=== PATIENT | male | born 1945 | race American Indian/Alaskan Native ===

== ENCOUNTER 2024-09-16 10:25 | Emergency (ER) | payer MEDICARE, MEDICAID, SELFPAY ==
[2024-09-16 11:23] VITALS: BP 167/71; PULSE 55; RESP 18; TEMP 36.4; O2SAT 95; BMI 18.5
--- NOTE | 2024-09-16 11:38 | EDNOTE_ITS ---
<Statement entered by Katie Angulo MD - 09/16/24 17:34> As co-signing physician, I was present and available for consult prn. I concur with the plan and care as documented by the midlevel provider. ED Wound/Laceration-RME/HPI General Chief Complaint: Wound/Laceration Stated Complaint: FINGER LAC Time Seen by Provider: 09/16/24 11:29 Arrival date/time: 09/16/24 10:25 RME / HPI RME / HPI narrative: 78-year-old male patient came in for evaluation regarding laceration to right pinky finger lateral aspect, patient was using a knife accidentally cut himself sustaining 1 cm nongaping laceration, right pinky finger severity mild. No active bleeding noted, patient is able to bend and extend the finger without any limitation. Tetanus vaccination is up-to-date. Last year Related Data Previous Rx's ?Medication ?Instructions ?Recorded naproxen 500 mg tablet 500 mg PO Q12H #20 tabs 12/06 Allergies Allergy/AdvReac Type Severity Reaction Status Date / Time No Known Allergies Allergy Verified 12/24/17 06:05 Review of Systems Review of Systems Narrative Review of Systems: Review of system reviewed and within normal limits except mentioned in HPI ED Exam Narrative Physical exam: VITAL SIGNS: Reviewed. GENERAL APPEARANCE: Alert and interactive, follows commands, no acute distress, HEAD AND FACE: Non-traumatic. ENT: PERRL, pink conjunctivitis, eyelid no trauma, Mucous membrane moist. NECK: Supple, nontender, no nuchal rigidity. CHEST: No tenderness, no crepitus, no paradoxical movement, no retractions. LUNGS: Clear, well ventilated, symmetric, no rales, no wheezing, no ronchi, no stridor, good breath sounds bilaterally. HEART: Regular rate, regular rhythm, no murmur, no gallops. ABDOMEN: Soft, positive bowel sounds, nondistended, no guarding, nontender, no rebound, no masses, RECTAL: Deferred. GENITAL: Deferred. NEUROLOGICAL: Gross motor function intact sensory function intact, Appropriate for age. MUSCULOSKELETAL: low back nontender, full range of motion. EXTREMITIES:+1 centimeter nongaping laceration, right pinky finger, full range of motion. SKIN: Color pink, dry, no rash, no lacerations, no abrasions, no contusions. LYMPHATICS: Deferred. Course Quality Measures none Orders Category Date Time Status Ibuprofen Tab [Motrin Tab] Med 09/16/24 11:38 Once 800 mg PO X1 ONE Vital Signs Vital signs: Vital Signs Temperature 97.6 F 09/16/24 11:23 Pulse Rate 55 L 09/16/24 11:23 Respiratory Rate 18 09/16/24 11:23 Blood Pressure 167/71 H 09/16/24 11:23 Pulse Oximetry (%) 95 09/16/24 11:23 Oxygen Delivery Method Room Air 09/16/24 11:23 Wound / Laceration MDM Narrative MDM Narrative:: 78-year-old male patient came in for evaluation regarding laceration to right pinky finger lateral aspect, patient was using a knife accidentally cut himself sustaining 1 cm nongaping laceration, right pinky finger severity mild. No active bleeding noted, patient is able to bend and extend the finger without any limitation. Tetanus vaccination is up-to-date. Last year Wound cleansed with NS, sterile strip applied, sterile dressing applied primary suture is noted at this time. Imaging is not needed also Patient appears nontoxic and hemodynamically stable. Patient discharged home and instructed to follow-up with primary care provider in 24 to 48 hours. Instructed to return to the emergency department immediately if worsening of s ymptoms Patient data External records reviewed:: None Clinical information provided by:: patient Social determinants that could affect healthcare access:: none Patient has the following chronic illnesses:: None How is presenting disease/condition affected by chronic disease/condition?: no chronic disease Evaluation data The following diagnostics were reviewed and interpreted by me:: other (specify) (None) Lab and/or radiology exams considered but not ordered:: None Interpretation Summary: None Medications / Prescriptions Medications or Prescriptions considered but not ordered:: None Medication administrations:: None Consultations Consultation(s) initiated? (list below): No Diagnosis Wound Differential Diagnosis: laceration, abrasion and avulsion of skin Most likely diagnosis given after review of the tests above:: Finger laceration Admission Indicated Admission indicated?: not indicated Admission Request Was there a request for admission?: No Disposition Plan Disposition Plan: Discharge Discharge Attestation Discharge Attestation: The patient was given an opportunity to ask questions and understood the discharge instructions. Discharge instructions specifically effects, i ndications for sooner follow up or return to the emergency department, and the expected course of current diagnosis. Patient condition: Stable Discharge Plan Plan Patient Disposition: HOME (Self Care) Disposition Comment: Stable Prescriptions/Referrals Prescriptions/Med Rec: No Action naproxen 500 mg tablet 500 mg PO Q12H Qty: 20 0RF Rx Instructions: administer with food or milk Problem List Clinical Impression: Finger laceration Patient/Caregiver Discharge Instructions Discharge Activity: activity as tolerated Education Materials: ED Laceration Small or ... Additional Instructions: Thank you for the opportunity for serving you today. You are stable for discharged . You are advised to: Follow-up with your PCP in 1 to 2 days Return to ED for worsening of symptoms Increase oral fluids Do not remove the Steri-Strips for the next 5 days Do not get your laceration wet for the next 5 days Print Language: Scottish Stand Alone Forms: [employer]he[employer] Award Info., Patient Portal Info Letter PA/HOME IMPROVEMENT CONTRACTOR Supervising Physician RONEL/HOME IMPROVEMENT CONTRACTOR Supervising Physician: MD Dion
[2024-09-16] MEDS: IBUPROFEN TAB 400 MG TABLET 800 MG PO (12:11)
== END 2024-09-16 12:31 | disposition home or self-care (01) ==
LOC: SERX 12:28
PROVIDERS: Emergency Provider Emergency Medicine; PCP Family Medicine
DX: S61.216A Laceration without foreign body of right little finger without damage to nail, initial encounter (principal); W26.0XXA Contact with knife, initial encounter
CPT/HCPCS: 99282; A9270

== ENCOUNTER 2025-05-16 15:04 | Emergency (ER) | payer MEDICARE, MEDICAID, SELFPAY ==
[2025-05-16 15:46] VITALS: BP 172/82; PULSE 70; RESP 19; TEMP 37.1; O2SAT 95; BMI 18.3
--- NOTE | 2025-05-16 17:03 | PD.EDWOUND ---
ED Wound/Laceration-RME/HPI General Chief Complaint: Wound/Laceration Stated Complaint: LAC TO L HAND Time Seen by Provider: 05/16/25 16:00 Arrival date/time: 05/16/25 15:04 79-year-old male presents to the emergency department today send he accidentally cut his hand today on a piece of metal Limitations: no limitations Related Data Previous Rx's ?Medication ?Instructions ?Recorded naproxen 500 mg tablet 500 mg PO Q12H #20 tabs 12/24/17 Allergies Allergy/AdvReac Type Severity Reaction Status Date / Time No Known Allergies Allergy Verified 12/24/17 06:05 Review of Systems Review of Systems Systems Reviewed: All systems reviewed, normal except as documented Constitutional Constitutional: Reports system reviewed and no additional complaints, except as documented, Denies fever(s) and Denies headache(s) Eyes Eyes: Reports system reviewed and no additional complaints, except as documented and Denies blurry vision ENT Ears, Nose, Mouth, and Throat: Reports system reviewed and no additional complaints, except as documented, Denies headache(s), Denies nasal congestion and Denies nasal discharge Cardiovascular Cardiovascular: Reports system reviewed and no additional complaints, except as documented, Denies chest pain and Denies dyspnea Respiratory Respiratory: Reports system reviewed and no additional complaints, except as documented, Denies chest congestion, Denies cough and Denies dyspnea Gastrointestinal Gastrointestinal: Reports system reviewed and no additional complaints, except as documented and Denies abdominal pain Integumentary/Breasts Skin/Breast: Reports system reviewed and no additional complaints, except as documented, Denies rash and Reports wounds Neurologic Neurologic: Reports system reviewed and no additional complaints, except as documented, Reports as per HPI and Denies headache(s) Past Medical History Past Medical History CARDIAC: Negative Congestive Heart Failure RESPIRATORY: Negative Chronic Obstructive Pulmonary Disease (COPD) GENITOURINARY: Negative Renal Disease ENDOCRINE: Negative Diabetes Mellitus Type 1 or Diabetes Mellitus Type 2 Social History SMOKING STATUS: Never smoker ED Exam General Limitations: Present no limitations General appearance: Present alert and in no apparent distress Head Head exam: Present atraumatic Eye Eye exam: Present normal appearance, PERRL and EOMI ENT ENT exam: Present normal exam, normal oropharynx and mucous membranes moist Neck Neck exam: Present normal inspection, full ROM and trachea midline Chest Chest inspection: Present normal inspection and symmetric chest wall rise Respiratory Respiratory exam: Present normal lung sounds bilaterally Cardiovascular Cardiovascular exam: Present regular rate, normal rhythm and normal heart sounds Abdominal Exam Abdominal exam: Present soft and normal bowel sounds Extremities Exam Extremities exam: Present full ROM, tenderness and normal capillary refill; Absent joint swelling Back Exam Back exam: Present normal inspection and full ROM Neurological Exam Neurological exam: Present alert, oriented X3 and CN II-XII intact Psychiatric Psychiatric exam: Present normal affect and normal mood Skin Skin exam: Present warm, dry, intact and normal color Course Quality Measures none Orders Category Date Time Status Set Up Suture Tray STAT Care 05/16/25 16:03 Active Wound Care NOW Care 05/16/25 16:03 Active Lidocaine 1% Vial 20 ml [Xylocaine 1% 20 ML] Med 05/16/25 16:03 Discontinued 20 ml INFL X1 ONE TET,DIP/PERT AC (Adult)-Tdap [Boostrix Adult (Tdap) Med 05/16/25 16:03 Discontinued Vacc] 0.5 ml IMI .ONCE ONE Vital Signs Vital signs: Vital Signs Temperature 98.8 F 05/16/25 15:46 Pulse Rate 70 05/16/25 15:46 Respiratory Rate 19 05/16/25 15:46 Blood Pressure 172/82 H 05/16/25 15:46 Pulse Oximetry (%) 95 05/16/25 15:46 Oxygen Delivery Method Room Air 05/16/25 15:46 O2 saturation 95% room air within normal limits PROCEDURES: Laceration Laceration 1: Site: hand Side (If applicable): left Size (cm): 4 Description: linear Depth: simple, single layer Local Anesthetic: lidocaine 1% Amount of anesthesia used (mL): 5 Pre-repair: wound explored and irrigated extensively Skin layer closed with: other (Prolene) Suture size (cm): 4-0 Number of sutures: 5 Technique: simple, interrupted Wound / Laceration MDM Narrative MDM Narrative:: 79-year-old male presents to the emergency department today send he accidentally cut his hand today on a piece of metal On exam patient well-appearing does not appear ill or toxic no distress Wound irrigated copiously laceration repaired total of 5 sutures by my colleague No evidence of tendon or ligament injury Patient instructed if sutures removed in 10 days Patient discharged home in no distress to follow-up with primary care doctor in the next 24 to 48 hours and for any worsening symptoms to return to the ER immediately Patient data External records reviewed:: [facility] previous records Clinical information provided by:: patient Social determinants that could affect healthcare access:: none Patient has the following chronic illnesses:: See history How is presenting disease/condition affected by chronic disease/condition?: uneffected by Evaluation data The following diagnostics were reviewed and interpreted by me:: other (specify) (N/A) Lab and/or radiology exams considered but not ordered:: Considered not ordered Interpretation Summary: N/A Medications / Prescriptions Medications or Prescriptions considered but not ordered:: Given Medication administrations:: Medication Administration History Discontinued Medications Diphtheria/Tetanus/Acell Pertussis (Diphth,Pertuss(Acell),Tet Vac 0.5 Ml Syr- Adult) 0.5 ml IMi .ONCE ONE Stop: 05/16/25 16:04 Lidocaine HCl (Lidocaine Hcl 1% 20 Ml Vial) 20 ml INFL X1 ONE Stop: 05/16/25 16:04 Given Consultations Consultation(s) initiated? (list below): No Diagnosis Wound Differential Diagnosis: laceration, abscess, abrasion and avulsion of skin Most likely diagnosis given after review of the tests above:: Laceration Admission Indicated Admission indicated?: not indicated Admission Request Was there a request for admission?: No Disposition Plan Disposition Plan: Discharge Discharge Attestation Discharge Attestation: The patient and all family members were given an opportunity to ask questions and understood the discharge instructions. Discharge instructions specifically effects, indications for sooner follow up or return to the emergency department, and the expected course of current diagnosis. Patient condition: Stable Discharge Plan Plan Patient Disposition: HOME (Self Care) Discharge Disposition comment: Stable Prescriptions/Referrals Prescriptions/Med Rec: No Action naproxen 500 mg tablet 500 mg PO Q12H Qty: 20 0RF Rx Instructions: administer with food or milk Problem List Clinical Impression: Laceration of hand, left Patient/Caregiver Discharge Instructions Education Materials: ED Laceration Hand with ... Additional Instructions: Please follow up with your primary care doctor in the next 24-48hrs for any worsening symptoms return here immediately Please have sutures removed in 10 days Print Language: Amharic Stand Alone Forms: [employer]he[employer] Award Info., Patient Portal Info Letter Vaccines Vaccines Given During Stay: TDaP PA/LOANS OFFICER Supervising Physician PA/LOANS OFFICER Supervising Physician: Dr. Girard
[2025-05-16] MEDS: LIDOCAINE HCL 1% 20 ML VIAL INFL (17:10)
== END 2025-05-16 18:19 | disposition home or self-care (01) ==
PROVIDERS: Emergency Provider Emergency Medicine
DX: S61.412A Laceration without foreign body of left hand, initial encounter (principal); W26.9XXA Contact with unspecified sharp object(s), initial encounter
CPT/HCPCS: 12001; 99281; J3490

== ENCOUNTER 2025-05-23 14:38 | Emergency (ER) | payer MEDICARE, MEDICAID, SELFPAY ==
[2025-05-23 14:44] VITALS: BP 154/68; PULSE 70; RESP 20; TEMP 36.7; O2SAT 96
--- NOTE | 2025-05-23 15:20 | EDNOTE_ITS ---
<Statement entered by Katie Angulo MD - 06/02/25 06:29> As co-signing physician, I was present and available for consult prn. I concur with the plan and care as documented by the midlevel provider. Upper Extremity Injury RME/HPI General Chief Complaint: Hand/Wrist Problems Stated Complaint: REMOVAL OF STITCHES L) HAND Time Seen by Provider: 05/23/25 14:56 Arrival date/time: 05/23/25 14:38 79-year-old male with laceration to the left palm reports for suture removal. Patient states he has been keeping the area clean and dry he denies numbness tingling pain discharge redness swelling fever or chills. Limitations: no limitations Related Data Previous Rx's ?Medication ?Instructions ?Recorded naproxen 500 mg tablet 500 mg PO Q12H #20 tabs 12/06 Allergies Allergy/AdvReac Type Severity Reaction Status Date / Time No Known Allergies Allergy Verified 05/23/25 14:40 Review of Systems Constitutional Constitutional: Denies chills and Denies fever(s) Musculoskeletal Musculoskeletal: Denies arthralgias, Denies joint swelling, Denies numbness and Denies tingling Integumentary/Breasts Skin/Breast: Denies unusual bruising and Reports wounds Neurologic Neurologic: Denies numbness and Denies tingling ED Exam General Limitations: Present no limitations General appearance: Present alert and in no apparent distress Extremities Exam Extremities exam: Present other (Left hand thenar eminence for intact sutures well-approximated edges no evidence of infection all digits full range of motion cap refill less than 2 seconds remainder of hand unremarkable) Neurological Exam Neurological exam: Present alert, oriented X3 and CN II-XII intact Psychiatric Psychiatric exam: Present normal affect and normal mood Skin Skin exam: Present warm, dry, intact and normal color Course Course Course Narrative: 79-year-old male with displaced left palm hand reports for suture removal. Assessment of sutures they need to remain for more days patient is advised to return in 3 days to have sutures removed Quality Measures none Orders Category Date Time Status Wound Care NOW Care 05/23/25 15:20 Active Vital Signs Vital signs: Vital Signs Temperature 98.1 F 05/23/25 14:44 Pulse Rate 70 05/23/25 14:44 Respiratory Rate 20 05/23/25 14:44 Blood Pressure 154/68 H 05/23/25 14:44 Pulse Oximetry (%) 96 05/23/25 14:44 Oxygen Delivery Method Room Air 05/23/25 14:44 Extremity Injury Patient data External records reviewed:: None Clinical information provided by:: patient Social determinants that could affect healthcare access:: none Patient has the following chronic illnesses:: work How is presenting disease/condition affected by chronic disease/condition?: no chronic disease Evaluation data The following diagnostics were reviewed and interpreted by me:: other (specify) (none) Lab and/or radiology exams considered but not ordered:: none Interpretation Summary: n/a Medications / Prescriptions Medications or Prescriptions considered but not ordered:: none Medication administrations:: none Consultations Consultation(s) initiated? (list below): No Diagnosis Upper Extremity Injury Differential Diagnosis: other (left hand laceration ) Most likely diagnosis given after review of the tests above:: left hand laceration with surture Admission Indicated Admission indicated?: not indicated Admission Request Was there a request for admission?: No Disposition Plan Disposition Plan: Discharge Discharge Attestation Discharge Attestation: The patient and all family members were given an opportunity to ask questions and understood the discharge instructions. Discharge instructions specifically effects, indications for sooner follow up or return to the emergency department, and the expected course of current diagnosis. Patient condition: Stable Discharge Plan Plan Patient Disposition: HOME (Self Care) Prescriptions/Referrals Prescriptions/Med Rec: No Action naproxen 500 mg tablet 500 mg PO Q12H Qty: 20 0RF Rx Instructions: administer with food or milk Problem List Clinical Impression: Laceration of hand, left Patient/Caregiver Discharge Instructions Discharge Activity: activity as tolerated Additional Instructions: Keep the area clean and dry return in 3 days for suture removal Print Language: Croatian Stand Alone Forms: Ashely Award Info., Patient Portal Info Letter
== END 2025-05-23 18:32 | disposition home or self-care (01) ==
LOC: SERX 16:40
PROVIDERS: Emergency Provider Emergency Medicine
DX: S61.412D Laceration without foreign body of left hand, subsequent encounter (principal); X58.XXXD Exposure to other specified factors, subsequent encounter
CPT/HCPCS: 99281

== ENCOUNTER 2025-05-30 14:57 | Emergency (ER) | payer MEDICARE, MEDICAID, SELFPAY ==
[2025-05-30 15:39] VITALS: BP 154/59; PULSE 61; RESP 20; TEMP 36.6; O2SAT 95; BMI 19.2
--- NOTE | 2025-05-30 15:49 | EDNOTE_ITS ---
ED Wound/Laceration-RME/HPI General Chief Complaint: Wound Recheck / Suture Removal Stated Complaint: Suture removal from left hand Time Seen by Provider: 05/30/25 15:48 Source: patient and family Arrival date/time: 05/30/25 14:57 Mode of arrival: ambulatory Limitations: no limitations RME / HPI Onset (ago): week(s) (1.5 weeks) Location: other (Left wrist and left hand) Extremity Location: Left: wrist Place: other Patient tetanus UTD: Yes Context: accidental Associated symptoms: none Related Data Previous Rx's ?Medication ?Instructions ?Recorded naproxen 500 mg tablet 500 mg PO Q12H #20 tabs 07/0 12/06 Allergies Allergy/AdvReac Type Severity Reaction Status Date / Time No Known Allergies Allergy Verified 05/30/25 15:00 Review of Systems Constitutional Constitutional: Reports system reviewed and no additional complaints, except as documented Eyes Eyes: Reports system reviewed and no additional complaints, except as documented, Denies dry eyes, Denies exophthalmos and Reports floaters Cardiovascular Cardiovascular: Denies chest pain with activity and Denies claudication ED Exam Narrative Physical exam: Left hand has 4 sutures inserted at the ventral aspect. They are clean dry there is no apparent signs of infection. Patient retains full range of motion of the thumb the index finger of the middle finger as well as the ring and then the pinky. There is no apparent signs of infection. Neurovascular is intact. General Limitations: Present no limitations General appearance: Present alert and in no apparent distress Head Head exam: Present atraumatic Eye Eye exam: Present normal appearance ENT ENT exam: Present normal exam Neck Neck exam: Present normal inspection Chest Chest inspection: Present normal inspection Extremities Exam Extremities exam: Present normal inspection (As discussed above) Back Exam Back exam: Present normal inspection and full ROM Neurological Exam Neurological exam: Present alert and oriented X3 Psychiatric Psychiatric exam: Present normal affect and normal mood Skin Skin exam: Present warm and dry Course Course Course Narrative: This patient is to be put into a room and the dressing removed and cleaned and patient's left wrist laceration will be evaluated for suture removal. Quality Measures none Vital Signs Vital signs: Vital Signs Temperature 97.9 F 05/30/25 15:39 Pulse Rate 61 05/30/25 15:39 Respiratory Rate 20 05/30/25 15:39 Blood Pressure 154/59 H 05/30/25 15:39 Pulse Oximetry (%) 95 05/30/25 15:39 Oxygen Delivery Method Room Air 05/30/25 15:39 Pulse ox room air 95% Wound / Laceration MDM Narrative MDM Narrative:: 4 sutures were removed effortlessly. The hand will be dressed and the patient will be discharged in no apparent distress to follow-up with primary care physician within a week rule out any apparent infectious process. Patient data External records reviewed:: Other (specify) Clinical information provided by:: patient Social determinants that could affect healthcare access:: none (NA) Patient has the following chronic illnesses:: NA How is presenting disease/condition affected by chronic disease/condition?: no chronic disease Evaluation data The following diagnostics were reviewed and interpreted by me:: other (specify) (NA) Lab and/or radiology exams considered but not ordered:: NA Interpretation Summary: NA Medications / Prescriptions Medications or Prescriptions considered but not ordered:: NA Medication administrations:: NA Consultations Consultation(s) initiated? (list below): No Consultation #1 (Physician, Specialty, Details): NA Diagnosis Wound Differential Diagnosis: laceration, abscess, abrasion and avulsion of skin Most likely diagnosis given after review of the tests above:: NA Admission Indicated Admission indicated?: not indicated Explain why admission is indicated or not indicated:: NA Admission Request Was there a request for admission?: No Admission Attestation Admission request attestation: NA Disposition Plan Disposition Plan: Discharge Discharge Attestation Discharge Attestation: The patient and all family members were given an opportunity to ask questions and understood the discharge instructions. Discharge instructions specifically effects, indications for sooner follow up or return to the emergency department, and the expected course of current diagnosis. Patient condition: Stable Discharge Plan Plan Patient Disposition: HOME (Self Care) Discharge Disposition comment: Patient to be discharged in no apparent distress Patient condition on transfer: Stable Health Concerns: N/A Prescriptions/Referrals Prescriptions/Med Rec: No Action naproxen 500 mg tablet 500 mg PO Q12H Qty: 20 0RF Rx Instructions: administer with food or milk Problem List Clinical Impression: Visit for suture removal Impression comment: Patient had his sutures removed and he is status post laceration Patient/Caregiver Discharge Instructions Discharge Activity: activity as tolerated Education Materials: Suture Care, ED Stitches/Staple Removal No ... Print Language: Amharic Stand Alone Forms: Ashely Award Info., Patient Portal Info Letter PA/CONTRACTING ENGINEER Supervising Physician PA/CONTRACTING ENGINEER Supervising Physician: LEISA
--- NOTE | 2025-05-30 17:28 | PC.NURSE ---
wound cleaned with NS, dried. triple antibiotic and dry dressing applied
== END 2025-05-30 17:29 | disposition home or self-care (01) ==
LOC: SERX 17:05
PROVIDERS: Emergency Provider Emergency Medicine
DX: S61.412D Laceration without foreign body of left hand, subsequent encounter (principal); X58.XXXD Exposure to other specified factors, subsequent encounter
CPT/HCPCS: 99281